=== PATIENT | male | born 1990 | race Hispanic/Latino ===

== ENCOUNTER 2017-03-18 12:10 | Emergency (ER) | payer OTHER ==
[~2017-03-18] VITALS: Ht 165.1 cm; Wt 81.6 kg
[~2017-03-18 12:10] MED LIST: FLEXERIL10 MG PO; NAPROSYN500 MG PO
[2017-03-18 12:52] LABS: HEMATOCRIT 42.3 % (38.0-50.0); MCH 28.9 PG (29.0-34.0); MCV 84.9 FL (86-99); PLATELET COUNT 267 K/uL (156-360); RBC DIS.WIDTH-CV 12.2 % (11.8-14.6); RBC DIS.WIDTH-SD 37.7 % (39-53); RED BLOOD COUNT 4.98 M/uL (4.00-5.50); WHITE BLOOD COUNT 8.8 K/uL (4.1-10.2)
[2017-03-18 13:02] LABS: CHLORIDE 105 mEq/L (99-109); POTASSIUM 4.2 mEq/L (3.7-5.4); SODIUM 140 mEq/L (136-147)
[2017-03-18 13:04] LABS: GLUCOSE 105 mg/dL (70-99)
[2017-03-18 13:05] LABS: ANION GAP 10 MEQ/L (2-14)
[2017-03-18 13:06] LABS: TOTAL BILIRUBIN 0.4 mg/dL (0.0-1.0)
[2017-03-18 13:07] LABS: ALKALINE PHOSPHATASE 82 IU/L (3-129)
[2017-03-18 13:08] LABS: GFR ESTIMATE (CALCULATED) > 59 mL/min/
[2017-03-18 13:09] LABS: UREA NITROGEN (BUN) 14 mg/dL (9-23)
[2017-03-18 14:30] LABS: LIPASE 19 U/L (1.0-51.0)
[2017-03-18 14:31] LABS: BASOPHIL COUNT 0.1 K/uL (0-0.1); EOSINOPHIL (%) 1.6 % (0-5); EOSINOPHIL COUNT 0.1 K/uL (0-0.3); IMMATURE GRANULOCYTE (%) 0.5 % (0.0-0.7); INSTRUMENT ABS NEUTROPHIL CT 5.2 K/uL; LYMPHOCYTE COUNT 2.6 K/uL (1.0-2.8); MONOCYTE (%) 7.6 % (3-12); MONOCYTE COUNT 0.7 K/uL (0-0.8); NEUTROPHIL (%) 59.9 % (45-76); NEUTROPHIL COUNT 5.2 K/uL (1.8-6.4)
[2017-03-18] MEDS ORDERED: NEXIUM40 MG PO (15:41)
[2017-03-18] MEDS ORDERED: NORCO 5/3251 TABLET PO (15:41)
[2017-03-18] MEDS ORDERED: ZOFRAN ODT4 MG PO (15:41)
[2017-03-18] MEDS ORDERED: BENTYL20 MG PO (15:41)
[2017-03-18 15:43] LABS: ADD MIUA? NO; BILIRUBIN NEGATIVE; BLOOD NEGATIVE; COLOR YELLOW ((YELLOW)); GLUCOSE (STRIP) NEGATIVE; KETONES NEGATIVE; LEUKOCYTES NEGATIVE; NITRITE NEGATIVE; PROTEIN (STRIP) NEGATIVE; UCUL ADDED? NO; UROBILINOGEN 0.2 MG/DL (0.2-1.0)
[2017-03-18 16:03] LABS: SPECIFIC GRAVITY 1.074 (1.000-1.030)
[2017-03-18 16:12] VITALS: BP 120/74
[2017-03-18 16:43] LABS: POC NON-PRINT COM 1 ND
== END 2017-03-18 16:16 | disposition home or self-care (01) ==
LOC: EME 12:10
PROVIDERS: Nurse Practitioner Family
DX: K92.1 Melena (principal); R10.9 Unspecified abdominal pain; K76.0 Fatty (change of) liver, not elsewhere classified; Z85.6 Personal history of leukemia; Z88.8 Allergy status to other drugs, medicaments and biological substances
CPT/HCPCS: 74177; 80053; 81003; 82272; 83690; 85025; 85027; 93005; 99281; 99285; J3010; J7030

== ENCOUNTER 2017-10-10 21:02 | Emergency (ER) | payer OTHER ==
[~2017-10-10] VITALS: Ht 165.1 cm; Wt 82.3 kg
[~2017-10-10 21:02] MED LIST changes: +BENTYL20 MG PO; +NEXIUM40 MG PO; +NORCO 5/3251 TABLET PO; +ZOFRAN ODT4 MG PO
[2017-10-11] MEDS ORDERED: ERYTHROMYC1 APPLICAT BOTH EYES (00:20)
[2017-10-11] MEDS ORDERED: ACULAR 0.5100 DROP/5 BOTH EYES (00:20)
[2017-10-11 00:35] VITALS: BP 129/84
== END 2017-10-11 00:35 | disposition home or self-care (01) ==
LOC: EME 21:02
DX: S05.92XA Unspecified injury of left eye and orbit, initial encounter (principal); H10.12 Acute atopic conjunctivitis, left eye; T59.891A Toxic effect of other specified gases, fumes and vapors, accidental (unintentional), initial encounter; Z77.098 Contact with and (suspected) exposure to other hazardous, chiefly nonmedicinal, chemicals; Z87.2 Personal history of diseases of the skin and subcutaneous tissue; Z85.6 Personal history of leukemia; Z88.8 Allergy status to other drugs, medicaments and biological substances
CPT/HCPCS: 99281; 99284